=== PATIENT | female | born 1980 | race Caucasian/White ===

== ENCOUNTER 2018-02-22 20:17 | Emergency (ER) | payer MEDICAID ==
[2018-02-22] MEDS ORDERED: CLINDAMYCIN 600MG/50ML PREMIX 600 MG/50 ML BAG IVPB ONE (20:31)
[2018-02-22] MEDS ORDERED: METHYLPREDNISOLONE PF 125MG/VIAL IVP ONE (20:31)
--- NOTE | 2018-02-22 20:37 | Emergency Department Record ---
History of Present Illness - General Chief complaint: Facial Swelling Stated complaint: FACIAL SWELLING Time Seen by Provider: 02/22/18 20:19 Source: Patient Mode of Arrival: Ambulatory Limitations: No limitations - History of Present Illness Initial Comments: 37 yo female presents to ED for evaluation of increased swelling following dental evaluation for an infected upper tooth this morning. Patient reports that she was started on Augmentin for her infection, reports that her swelling symptoms worsened this evening to the infra-orbital region. Patient denies rash , throat swelling, or difficulty in swallowing. Patient denies fevers, chills, or recent illness. Patient does report a history of seizures controlled with medical marijuana. MD Complaint: Facial swelling Onset/Timin -: Hour(s) Exposure: Other Symptoms: Facial swelling Severity: Moderate Treatment Prior to Arrival: None Previous Allergy History: None - Related Data Home Medications Medication Instructions Recorded Confirmed Last Taken Amoxicillin/Potassium Clav 1 tab PO BID 02/22/18 02/22/18 02/22/18 [Amox-Clav 875-125 mg Tablet] Allergies Allergy/AdvReac Type Severity Reaction Status Date / Time cephalexin monohydrate Allergy Intermediate body Verified 02/22/18 20:23 [From Keflex] swelling hydrochlorothiazide Allergy Intermediate stomach Verified 02/22/18 20:23 issues Review of Systems Constitutional: Denies: Chills, Fever, Malaise, Night sweats Eyes: Reports: Other (Norberto-orbital swelling). Denies: Eye discharge, Eye pain ENT: Denies: Congestion, Ear pain, Epistaxis Respiratory: Denies: Cough, Dyspnea Cardiovascular: Denies: Chest pain, Dyspnea on exertion Endocrine: Denies: Fatigue, Heat or cold intolerance Gastrointestinal: Denies: Abdominal pain, Nausea, Vomiting Genitourinary: Denies: Incontinence, Retention Musculoskeletal: Denies: Arthralgia, Back pain, Gout, Joint swelling Skin: Denies: Bruising, Change in color Neurological: Denies: Abnormal gait, Confusion, Seizure Psychiatric: Denies: Anxiety Hematological/Lymphatic: Denies: Anemia, Blood Clots Physical Exam - General General Appearance: Alert, Oriented x3, Cooperative, Mild distress Limitations: No limitations - Head Head exam: Atraumatic Head exam detail: Other (Infra-orbital STS right face/maxillary region.). negative: Abrasion, Contusion, Hercules's sign, General tenderness, Hematoma, Laceration - Eye Eye exam: Periorbital swelling. negative: Conjunctival injection, Periorbital tenderness, Scleral icterus - ENT Ear exam: negative: Auricular hematoma, Auricular trauma Nasal Exam: negative: Active bleeding, Discharge, Dried blood, Foreign body Mouth exam: negative: Drooling, Laceration, Muffled voice, Tongue elevation, Tongue normal Teeth exam: Dental caries (numerous dental caries). negative: Gingival enlargement Throat exam: negative: Tonsillar erythema, R peritonsillar mass, L peritonsillar mass - Neck Neck exam: Normal inspection. negative: Meningismus, Tenderness - Respiratory Respiratory exam: Normal lung sounds bilaterally. negative: Rales, Respiratory distress, Rhonchi, Stridor - Cardiovascular Cardiovascular Exam: Regular rate, Normal rhythm, Normal heart sounds - GI/Abdominal GI/Abdominal exam: Soft. negative: Rebound, Rigid, Tenderness - Rectal Rectal exam: Deferred - exam: Deferred - Extremities Extremities exam: Normal inspection. negative: Pedal edema, Tenderness - Back Back exam: Denies: CVA tenderness (R), CVA tenderness (L) - Neurological Neurological exam: Alert, Normal gait, Oriented X3 - Psychiatric Psychiatric exam: Normal affect, Normal mood - Skin Skin exam: Normal color. negative: Abrasion Type of lesion: negative: abrasion Course - Reevaluation(s) Reevaluation #1: 02/22/18 21:24 Patient reassessed, reports that her pain symptoms are improved (4/10). Patient was instructed to return to the ED in 12 hours for reassessment of her norberto-orbital swelling symptoms. Patient appears stable for discharge at this time. Disposition Disposition: Discharge Clinical Impression: Dental caries Disposition: Home, Self-Care Condition: (2) Stable Instructions: Dental Abscess (ED) Additional Instructions: Return to ED in 12 hours for reassessment of your facial swelling symptoms. Continue Augmentin as directed. Follow-up with your Dentist in 1-3 days as directed. Forms: Patient Portal Access Time of Disposition: 21:25 Quality - Quality Measures Quality Measures: N/A - Blood Pressure Screening Does Patient Have Any of the Following: No Blood Pressure Classification: Hypertensive Reading Systolic Measurement: 168 Diastolic Measurement: 97 Screening for High Blood Pressure: < First Hypertensive BP, F/U Documented > [ G8950] First Hypertensive Follow-up Interventions: Referral to alternative/primary care provider.
[2018-02-22] MEDS ORDERED: KETOROLAC 30 MG/ML VIAL IVP ONE (20:53)
== END 2018-02-22 21:36 | disposition home or self-care (01) ==
LOC: ER 20:17
DX: K02.9 Dental caries, unspecified (principal); H05.229 Edema of unspecified orbit
CPT/HCPCS: 99284 ×2; 96365; 96375; J1885; J2930

== ENCOUNTER 2018-02-23 08:34 | Emergency (ER) | payer MEDICAID ==
--- NOTE | 2018-02-23 08:43 | Emergency Department Record ---
History of Present Illness - General Chief Complaint: Recheck - Other Stated Complaint: RECHECK SWELLING ON FACE Time Seen by Provider: 02/23/18 08:42 Source: Patient Mode of arrival: Ambulatory Limitations: No limitations - History of Present Illness Initial Comments: Pt seen here 12 hours ago for dental infection with right facial swelling. Given IV AB and started on oral AB. Notes much improvement. Decreased swelling. Able to open eye! No fever. No difficulty with breathing or swallowing. No other complaints. states "even the kids think she looks better" MD Complaint: Needs IV antibiotics, Wound re-check Onset/Timin -: Days(s) Initial Visit For: Abscess Returns Today for: Needs IV antibiotics Symptoms Since Prior Visit: Improved Treatments Prior to Arrival: Given antibiotics on initial visit - Related Data Allergies Allergy/AdvReac Type Severity Reaction Status Date / Time cephalexin monohydrate Allergy Intermediate body Verified 02/23/18 08:44 [From Keflex] swelling hydrochlorothiazide Allergy Intermediate stomach Verified 02/23/18 08:44 issues Review of Systems Constitutional: Denies: Chills, Fever, Weakness Eyes: Denies: Eye discharge, Eye pain ENT: Denies: Congestion Respiratory: Denies: Cough, Dyspnea Cardiovascular: Denies: Arrhythmia, Chest pain Endocrine: Denies: Fatigue, Polydipsia Gastrointestinal: Denies: Abdominal pain, Nausea, Vomiting Musculoskeletal: Denies: Arthralgia, Back pain Skin: Denies: Bruising, Rash Neurological: Denies: Abnormal gait, Headache, Numbness, Seizure, Tingling Psychiatric: Denies: Anxiety Hematological/Lymphatic: Denies: Anemia, Blood Clots Past Medical History - SOCIAL HISTORY Smoking Status: Current every day smoker Drug Use: Occasional Drug Use Detail:: Marijuana - RESPIRATORY Hx Respiratory Disorders: No - CARDIOVASCULAR Hx Cardio Disorders: Yes Comment:: 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 - NEURO Hx Neuro Disorders: Yes Hx Seizures: Yes (w/stress) - GI Hx GI Disorders: No - Hx Genitourinary Disorders: No - ENDOCRINE Hx Endocrine Disorders: No - MUSCULOSKELETAL Hx Musculoskeletal Disorders: No - PSYCH Hx Psych Problems: No - HEMATOLOGY/ONCOLOGY Hx Hematology/Oncology Disorders: No Family Medical History Hx Cancer: Mother Hx Diabetes: Father, Grandparents Hx Heart Disease: Mother Hx Resp Disorders: Grandparents Physical Exam - General General Appearance: Alert, Oriented x3, Cooperative, No acute distress - Head Head exam: Normal inspection - Eye Eye exam: Normal appearance, PERRL, EOMI - ENT ENT exam: Normal exam Ear exam: Normal external inspection Nasal Exam: Normal inspection Mouth exam: Normal external inspection (Right upper facial swelling without fluctuance. No drainage or pointing abscess to mouth. ) - Neck Neck exam: Normal inspection, Full ROM. negative: Lymphadenopathy, Meningismus , Tenderness - Respiratory Respiratory exam: Normal lung sounds bilaterally. negative: Rhonchi, Stridor, Wheezes - Cardiovascular Cardiovascular Exam: Regular rate, Normal rhythm, Normal heart sounds Peripheral Pulses: 2+: Radial (R), Radial (L) - GI/Abdominal GI/Abdominal exam: Soft, Normal bowel sounds. negative: Tenderness - Rectal Rectal exam: Deferred - Extremities Extremities exam: Normal inspection. negative: Calf tenderness, Full ROM - Back Back exam: Reports: Normal inspection - Neurological Neurological exam: Alert, Normal gait, Oriented X3 - Psychiatric Psychiatric exam: Normal affect, Normal mood - Skin Skin exam: Normal color. negative: Rash Course - Reevaluation(s) Reevaluation #1: 02/23/18 09:11 Improved since IV Clindamycin last night 12 hours ago. Will give second dose IV Clinda and continue oral Augmentin with close follow up with her dentist. Disposition Disposition: Discharge Clinical Impression: Dental infection, Right facial swelling Disposition: Home, Self-Care Condition: (2) Stable Instructions: Toothache (ED), Dental Abscess (ED) Additional Instructions: Follow closely with your dentist. Continue your Augmentin twice a day. Return to the ED if increased swelling, fever, difficulty swallowing or breathing or and other concern. Forms: Patient Portal Access Quality - Quality Measures Quality Measures: N/A - Blood Pressure Screening Does Patient Have Any of the Following: No Blood Pressure Classification: Pre-Hypertensive BP Reading Systolic Measurement: 131 Diastolic Measurement: 82 Screening for High Blood Pressure: < Pre-Hypertensive BP, F/U Documented > [ G8950] Pre-Hypertensive Follow-up Interventions: Follow-up with rescreen every year.
[2018-02-23] MEDS ORDERED: CLINDAMYCIN 600MG/50ML PREMIX 600 MG/50 ML BAG IVPB ONE (08:54)
== END 2018-02-23 09:41 | disposition home or self-care (01) ==
LOC: ER 08:34
DX: K04.7 Periapical abscess without sinus (principal); R22.0 Localized swelling, mass and lump, head; F17.210 Nicotine dependence, cigarettes, uncomplicated
CPT/HCPCS: 96365; 99282

== ENCOUNTER 2018-02-24 15:36 | Emergency (ER) | payer MEDICAID ==
[2018-02-24] MEDS ORDERED: CLINDAMYCIN 600MG/50ML PREMIX 600 MG/50 ML BAG IVPB ONE (15:52)
--- NOTE | 2018-02-24 16:12 | Emergency Department Record ---
History of Present Illness - General Chief complaint: Facial Swelling Stated complaint: facial swelling Time Seen by Provider: 02/24/18 15:37 Source: Patient Mode of Arrival: Ambulatory Limitations: No limitations - History of Present Illness Initial Comments: The patient is here due to R facial swelling for 3 days. She has been to the ER here each of the last 2 days for the same thing and has received IV Abx's. She states initially she was better but then today the swelling has gotten worse and it is closing her R eye. She does have significant dental caries to the R upper jaw. Complaint: Facial swelling Onset/Timin -: Days(s) Symptoms: Facial swelling Severity: Moderate Treatment Prior to Arrival: Other - Related Data Allergies Allergy/AdvReac Type Severity Reaction Status Date / Time cephalexin monohydrate Allergy Intermediate body Verified 02/24/18 15:45 [From Keflex] swelling hydrochlorothiazide Allergy Intermediate stomach Verified 02/24/18 15:45 issues Travel Screening - Travel/Exposure Within Last 30 Days Have you traveled within the last 30 days?: No - Travel/Exposure Within Last Year Have you traveled outside the [place] 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 - NEURO Hx Neuro Disorders: Yes Hx Seizures: Yes (w/stress) - GI Hx GI Disorders: No - Hx Genitourinary Disorders: No - ENDOCRINE Hx Endocrine Disorders: No - MUSCULOSKELETAL Hx Musculoskeletal Disorders: No - PSYCH Hx Psych Problems: No - HEMATOLOGY/ONCOLOGY Hx Hematology/Oncology Disorders: No Family Medical History Any Significant Family History?: No Hx Cancer: Mother Hx Diabetes: Father, Grandparents Hx Heart Disease: Mother Hx Resp Disorders: Grandparents Physical Exam - General General Appearance: Alert, Oriented x3, Cooperative, No acute distress - Head Head exam: Atraumatic, Normocephalic Image of Face/Head: 1 - Area of pain, selling, and erythema. - Eye Eye exam: Normal appearance, PERRL - ENT ENT exam: negative: Normal exam (There is very significant swelling to the R facial area.) Mouth exam: Tongue normal. negative: Muffled voice Teeth exam: Dental caries. negative: Normal inspection Throat exam: Normal inspection - Neck Neck exam: Normal inspection, Full ROM. negative: Tenderness - Respiratory Respiratory exam: Normal lung sounds bilaterally. negative: Respiratory distress - Cardiovascular Cardiovascular Exam: Regular rate, Normal rhythm, Normal heart sounds Course Vital Signs 02/24/18 15:45 Temperature 98.3 F Pulse Rate [ 84 Pulse Ox Probe] Respiratory 16 Rate Blood Pressure 176/119 [Left Arm] Pulse Ox 99 - Reevaluation(s) Reevaluation #1: Due to the illness becoming more severe over the last 24 hours I did recommend transfer to a larger hospital for an Oral Surgery consult and possible admission and the patient agreed with the plan. She chose to go to [facility] so I did discuss the case with Dr. Rodriguez in the ER and she did accept the patient in an ER to ER transfer. 02/24/18 16:44 Medical Decision Making - Data Complexity MDM Data: Labs Ordered and/or Reviewed - Lab Data Result diagrams: 02/24/18 16:10 02/24/18 16:10 Disposition Disposition: Transfer Clinical Impression: Right facial swelling Disposition: Acute Care Hospital Transfer Transfer To: [facility] ED. Reason For Transfer: Oral Surgery Accepting Physician: Michael Time Discussed w/Accepting Physician: 16:46 Condition: (2) Stable Additional Instructions: Please go directly to the ER at [facility] for further evaluation. Please do not eat or drink on the way. Forms: Patient Portal Access Time of Disposition: 16:46 Quality - Quality Measures Quality Measures: N/A - Blood Pressure Screening View Details: Yes Does Patient Have Any of the Following: Active Dx of HTN Blood Pressure Classification: Hypertensive Reading Systolic Measurement: 159 Diastolic Measurement: 107 Screening for High Blood Pressure: Patient Exclusion, Hx of HTN [G9744]
[2018-02-24 16:19] LABS: BASO % 0.3 % (0-6); EOS % 0.9 % (0-6); HEMATOCRIT 39.6 % (35.0-47.0); HEMOGLOBIN 12.6 gm/dl (11.6-16.0); LYMPH % 35.5 % (16-45); MEAN CELL VOLUME 94.7 fl (81-97); MEAN CORPUSCULAR HEMOGLOBIN 30.1 pg (27-33); MEAN CORPUSCULAR HGB CONC 31.8 g/dl (32-36); MEAN PLATELET VOLUME 10.3 fl (7.4-10.4); MONO % 7.3 % (0-9); PLATELET COUNT 239 K/uL (130-400); RED BLOOD COUNT 4.18 M/uL (3.80-5.40); RED CELL DISTRIBUTION WIDTH 12.8 % (11.5-14.5); WHITE BLOOD COUNT W/O DIFF 9.7 K/uL (4.2-12.2)
[2018-02-24 16:32] LABS: BLOOD UREA NITROGEN 14 mg/dL (6-20); CREATININE 0.7 mg/dL (0.5-0.9); EST GLOMERULAR FILTRATION RATE > 60 mL/min
[2018-02-24 16:35] LABS: GLUCOSE,RANDOM 89 mg/dL (74-109)
[2018-02-24 16:38] LABS: C-REACTIVE PROTEIN 1.49 mg/dL (<0.5)
== END 2018-02-24 16:55 | disposition short-term general hospital (02) ==
LOC: ER 15:36
DX: K04.7 Periapical abscess without sinus (principal); R22.0 Localized swelling, mass and lump, head; F17.210 Nicotine dependence, cigarettes, uncomplicated
CPT/HCPCS: 80048; 85025; 86140; 99283

== ENCOUNTER 2018-04-30 13:53 | Emergency (ER) | payer MEDICAID ==
--- NOTE | 2018-04-30 14:13 | Emergency Department Record ---
History of Present Illness - General Chief Complaint: Cough Stated Complaint: COUGH/ST Time Seen by Provider: 04/30/18 13:58 Source: Patient Mode of Arrival: Ambulatory Limitations: No limitations - History of Present Illness Initial Comments: 37 female presents with 4 days of sore throat, cough, and fevers. The cough is non productive. She did have a flu shot this year. 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 No NVD. No rash. MD Complaint: Cough, Fever, Sore throat Onset/Timin -: Days(s) (4) Severity: Moderate Severity scale (1-10): 4 Consistency: Constant, Intermittent Improves With: Nothing Worsens With: Nothing Associated Symptoms: Cough, Fever, Sore throat - Related Data Home Medications Medication Instructions Recorded Confirmed Last Taken No Home Med [NO HOME MEDS] 04/30/18 04/30/18 Unknown Allergies Allergy/AdvReac Type Severity Reaction Status Date / Time cephalexin monohydrate Allergy Intermediate body Verified 04/30/18 14:00 [From Keflex] swelling hydrochlorothiazide Allergy Intermediate stomach Verified 04/30/18 14:00 issues amoxicillin [From Augmentin] Allergy ANAPHYLAXIS Verified 04/30/18 14:01 clavulanic acid Allergy ANAPHYLAXIS Verified 04/30/18 14:01 [From Augmentin] Travel Screening - Travel/Exposure Within Last 30 Days Have you traveled within the last 30 days?: No - Travel/Exposure Within Last Year Have you traveled outside the [place] in the last year?: No - Additonal Travel Details Have you been exposed to anyone with a communicable illness?: No - Travel Symptoms Symptom Screening: None Review of Systems Constitutional: Reports: Fever. Denies: Chills Eyes: Denies: Eye discharge ENT: Reports: Congestion, Throat pain. Denies: Dental pain, Ear pain Respiratory: Reports: Cough. Denies: Dyspnea Cardiovascular: Denies: Chest pain, Palpitations, Syncope Endocrine: Denies: Fatigue, Polydipsia, Polyuria Gastrointestinal: Denies: Abdominal pain, Diarrhea, Nausea, Vomiting Genitourinary: Denies: Dysuria Musculoskeletal: Denies: Arthralgia, Back pain, Myalgia Skin: Denies: Bruising, Change in color, Rash Neurological: Denies: Headache Psychiatric: Denies: Anxiety Hematological/Lymphatic: Denies: Easy bleeding, Easy bruising, Swollen glands Past Medical History - SOCIAL HISTORY Smoking Status: Current every day smoker Alcohol Use: Occasional Drug Use: None - RESPIRATORY Hx Respiratory Disorders: No - CARDIOVASCULAR Hx Cardio Disorders: Yes Comment:: 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 - NEURO Hx Neuro Disorders: Yes Hx Seizures: Yes (w/stress last one was a lot of years) - GI Hx GI Disorders: No - Hx Genitourinary Disorders: No - ENDOCRINE Hx Endocrine Disorders: No - MUSCULOSKELETAL Hx Musculoskeletal Disorders: No - PSYCH Hx Psych Problems: No - HEMATOLOGY/ONCOLOGY Hx Hematology/Oncology Disorders: No Family Medical History Any Significant Family History?: Yes Hx Cancer: Mother Hx Diabetes: Father, Grandparents Hx Heart Disease: Mother Hx Resp Disorders: Grandparents Physical Exam - General General Appearance: Alert, Oriented x3, Cooperative, No acute distress Limitations: No limitations - Head Head exam: Atraumatic, Normal inspection - Eye Eye exam: Normal appearance. negative: Conjunctival injection, Periorbital swelling - ENT ENT exam: Normal exam, Mucous membranes moist, Normal orophraynx, TM's normal bilaterally. negative: Mucous membranes dry Ear exam: Normal external inspection Nasal Exam: Discharge Mouth exam: Normal external inspection Teeth exam: Normal inspection Throat exam: Tonsillar erythema, Tonsillomegaly. negative: Tonsillar exudate, R peritonsillar mass, L peritonsillar mass - Neck Neck exam: Normal inspection, Full ROM. negative: Lymphadenopathy, Tenderness - Respiratory Respiratory exam: Normal lung sounds bilaterally. negative: Decreased breath sounds, Respiratory distress, Rhonchi, Stridor, Wheezes - Cardiovascular Cardiovascular Exam: Regular rate, Normal rhythm, Normal heart sounds - GI/Abdominal GI/Abdominal exam: Soft. negative: Tenderness - Rectal Rectal exam: Deferred - exam: Deferred - Extremities Extremities exam: negative: Normal inspection, Tenderness - Back Back exam: Denies: CVA tenderness (R), CVA tenderness (L) - Neurological Neurological exam: negative: Alert, Oriented X3 - Psychiatric Psychiatric exam: Normal affect, Normal mood - Skin Skin exam: Dry, Intact, Normal color, Warm Course Vital Signs 04/30/18 13:55 Temperature 98.1 F Pulse Rate 78 Respiratory 20 Rate Blood Pressure 169/104 Pulse Ox 99 - Reevaluation(s) Reevaluation #1: The vitals were reviewed. No acute abnormalities on the vitals. 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 04/30/18 19:18 The patient was informed of the need to have her blood pressure rechecked Disposition Disposition: Discharge Clinical Impression: Viral respiratory illness Disposition: Home, Self-Care Condition: (1) Good Instructions: Viral Syndrome (ED) Additional Instructions: Rest and stay well hydrated Return if worse, vomiting, fevers, short of breath or any other new concerns Off work the next two days given you are likely infectious Tylenol or Motrin for discomfort or fever. Forms: Patient Portal Access Time of Disposition: 14:45 Quality - Quality Measures Quality Measures: N/A - Blood Pressure Screening Does Patient Have Any of the Following: No Blood Pressure Classification: Hypertensive Reading Systolic Measurement: 162 Diastolic Measurement: 105 Screening for High Blood Pressure: < Pre-Hypertensive BP, F/U Documented > [ G8950] Pre-Hypertensive Follow-up Interventions: Referral to alternative/primary care provider.
[2018-04-30 14:31] LABS: INFLUENZA A NEGATIVE (NEGATIVE); INFLUENZA B NEGATIVE (NEGATIVE); STREP A SCREEN NEGATIVE (NEGATIVE)
== END 2018-04-30 14:53 | disposition home or self-care (01) ==
LOC: ER 13:53
DX: J06.9 Acute upper respiratory infection, unspecified (principal); R05 Cough; R03.0 Elevated blood-pressure reading, without diagnosis of hypertension; F17.210 Nicotine dependence, cigarettes, uncomplicated
CPT/HCPCS: 87400; 87880; 99282